=== PATIENT | female | born 1975 | race African-American/Black ===

== ENCOUNTER → 2016-09-07 | Emergency (ER) | payer BC ==
[~2016-09-07] VITALS: Ht 152.4 cm; Wt 85.0 kg
[~2016-09-07] MED LIST: PRENATAL MVI PO
[2016-09-07 12:34] VITALS: BP 146/101; PULSE 82; TEMP 98.2
[2016-09-07 13:47] LABS: BASO % 0.3 % (0.0-2.0); EOS # 0.1 (0.0-0.7); EOS % 1.1 % (0-4.0); GRAN # 3.5 (1.4-6.5); GRAN % 56.3 % (42.2-75.2); HEMOGLOBIN 12.1 g/dl (12.5-16.0); LYMPH % 31.9 % (20.0-51.0); MEAN CELL VOLUME 72 fl (80.0-100.0); MEAN CORPUSCULAR HEMOGLOBIN 22 pg (27.0-31.0); MEAN CORPUSCULAR HGB CONC 31 g/dl (33.0-37.0); MEAN PLATELET VOLUME 9.9 fl (7.4-10.4); MONO # 0.6 (0.1-0.6); MONO % 10.1 % (1.7-9.3); PLATELET COUNT 214 K/mm3 (130-400); RED BLOOD COUNT 5.39 M/mm3 (4.10-5.30); REDCELL DISTRIBUTION WIDTH-CV 18.6 % (11.5-14.5); WHITE BLOOD COUNT 6.2 K/mm3 (4.8-10.8)
[2016-09-07 14:07] LABS: PH 5 (5-8); SQUAMOUS EPITHELIAL 0-2 /hpf; URINE APPEARANCE Clear; URINE BACTERIA Rare /hpf; URINE BILIRUBIN Negative (NEGATIVE); URINE BLOOD 3+ (NEGATIVE); URINE COLOR Yellow; URINE GLUCOSE Negative (NEGATIVE); URINE KETONE Negative (NEGATIVE); URINE RBC >50 /hpf; URINE UROBILINOGEN Negative (NEGATIVE); URINE WBC 0-2 /hpf
== END | disposition home or self-care (01) ==
LOC: COL.ER 12:22
PROVIDERS: Emergency Medicine
DX: O20.9 Hemorrhage in early pregnancy, unspecified (principal); Z3A.01 Less than 8 weeks gestation of pregnancy; O09.521 Supervision of elderly multigravida, first trimester

== ENCOUNTER 2018-01-25 21:20 | Emergency (ER) | payer BC ==
[2018-01-25 21:22] VITALS: TEMP 98.6
[2018-01-25] MEDS ORDERED: ZANTAC 7575 MG PO (21:38)
[2018-01-25] MEDS ORDERED: ZYRTEC5 MG PO (21:38)
[2018-01-25] MEDS ORDERED: NORVASC 5MG5 MG/TAB PO (21:38)
[2018-01-25 22:05] LABS: COLLECTION METHOD CLEAN CATCH
[2018-01-25 22:07] LABS: BASO % 0.3 % (0.0-2.0); EOS # 0.1 (0.0-0.7); GRAN # 6.3 (1.4-6.5); GRAN % 73.5 % (42.2-75.2); HEMOGLOBIN 11.5 g/dl (12.5-16.0); LYMPH # 1.4 (1.2-3.4); LYMPH % 16.4 % (20.0-51.0); MEAN CELL VOLUME 73 fl (80.0-100.0); MEAN CORPUSCULAR HEMOGLOBIN 24 pg (27.0-31.0); MEAN CORPUSCULAR HGB CONC 32 g/dl (33.0-37.0); MEAN PLATELET VOLUME 9.5 fl (7.4-10.4); MONO # 0.7 (0.1-0.6); MONO % 8.1 % (1.7-9.3); PLATELET COUNT 203 K/mm3 (130-400); REDCELL DISTRIBUTION WIDTH-CV 16.1 % (11.5-14.5)
[2018-01-25 22:08] LABS: HEMATOCRIT 35.8 % (37.0-47.0)
[2018-01-25 22:10] LABS: MUCOUS Present /lpf; PH 6 (5-8); SQUAMOUS EPITHELIAL 0-2 /hpf; URINE APPEARANCE Clear; URINE BACTERIA None Seen /hpf; URINE BILIRUBIN Negative (NEGATIVE); URINE BLOOD Negative (NEGATIVE); URINE COLOR Yellow; URINE GLUCOSE Negative (NEGATIVE); URINE KETONE 1+ (NEGATIVE); URINE LEUKOCYTE ESTERASE Negative (NEGATIVE); URINE NITRATE Negative (NEGATIVE); URINE PROTEIN(semi-quant) Negative (NEGATIVE); URINE RBC 0-2 /hpf; URINE UROBILINOGEN Negative (NEGATIVE)
[2018-01-25 22:20] LABS: ALANINE AMINOTRANSFERASE 39 U/L (9-52); ALBUMIN 3.5 gm/dL (3.5-5.0); ALKALINE PHOSPHATASE 67 U/L (50-136); ANION GAP 9 mmol/L (7-16); AST,SGOT 21 U/L (15-37); BILIRUBIN,TOTAL < 0.1 mg/dL (0.0-1.0); BLOOD UREA NITROGEN 8 mg/dL (7-17); CALCIUM 9.1 mg/dL (8.4-10.2); CARBON DIOXIDE 23 mmol/L (22-30); CHLORIDE 102 mmol/L (98-107); CREATININE, serum 0.59 mg/dL (0.52-1.25); GLUCOSE 84 mg/dL (74-106); POTASSIUM 3.8 mmol/L (3.4-5.0); SODIUM 134 mmol/L (137-145)
[2018-01-25 23:00] VITALS: BP 124/87; PULSE 86
== END 2018-01-25 23:00 | disposition home or self-care (01) ==
LOC: COL.ER 21:20
PROVIDERS: Emergency Medicine
DX: O99.612 Diseases of the digestive system complicating pregnancy, second trimester (principal); O16.2 Unspecified maternal hypertension, second trimester; O99.89 Other specified diseases and conditions complicating pregnancy, childbirth and the puerperium; R10.2 Pelvic and perineal pain; K21.9 Gastro-esophageal reflux disease without esophagitis; Z3A.18 18 weeks gestation of pregnancy

== ENCOUNTER 2018-05-28 12:31 | Inpatient (IN) | payer BC ==
[~2018-05-28] VITALS: Ht 152.4 cm; Wt 90.0 kg
[~2018-05-28 12:31] MED LIST changes: +NORVASC 5MG5 MG/TAB PO; +ZANTAC 7575 MG PO; +ZYRTEC5 MG PO
[2018-06-19] VITALS (19 sets, daily range): BP systolic 105–151; BP diastolic 58–93; PULSE 50–90; TEMP 98–98.4
[2018-06-19 10:48] LABS: BASO % 0.3 % (0.0-2.0); EOS % 0.3 % (0-4.0); GRAN # 4.5 (1.4-6.5); GRAN % 67.7 % (42.2-75.2); HEMATOCRIT 38.2 % (37.0-47.0); HEMOGLOBIN 11.9 g/dl (12.5-16.0); LYMPH # 1.4 (1.2-3.4); LYMPH % 21.5 % (20.0-51.0); MEAN CELL VOLUME 76 fl (80.0-100.0); MEAN CORPUSCULAR HEMOGLOBIN 24 pg (27.0-31.0); MEAN CORPUSCULAR HGB CONC 31 g/dl (33.0-37.0); MEAN PLATELET VOLUME 11.7 fl (7.4-10.4); MONO # 0.6 (0.1-0.6); MONO % 9.3 % (1.7-9.3); PLATELET COUNT 171 K/mm3 (130-400); RED BLOOD COUNT 5.03 M/mm3 (4.10-5.30); REDCELL DISTRIBUTION WIDTH-CV 16.7 % (11.5-14.5)
[2018-06-19] MEDS ORDERED: CALCIUM CARBON650 M2 (10:52)
[2018-06-19] MEDS ORDERED: VTAMINC250TA (10:52)
[2018-06-19] MEDS ORDERED: PROFERRIN ES12 MG (10:52)
[2018-06-20 06:38] LABS: HEMOGLOBIN 11.4 g/dl (12.5-16.0)
[2018-06-20 06:39] LABS: HEMATOCRIT 36.1 % (37.0-47.0)
[2018-06-20 06:50] VITALS: BP 141/85; PULSE 62; TEMP 98
[2018-06-20 16:11] VITALS: BP 142/85; PULSE 85; TEMP 97.6
[2018-06-20 19:00] VITALS: BP 137/75; PULSE 80; TEMP 97.9
[2018-06-21 08:00] VITALS: BP 138/78; PULSE 70; TEMP 98.1
[2018-06-21] MEDS ORDERED: PERCOCET 325 MG1 TA2 PO (13:49)
[2018-06-21] MEDS ORDERED: IBU600 MG PO (13:49)
== END 2018-06-21 16:40 | disposition home or self-care (01) | DRG 787 ==
LOC: EDSTATUS 06-19 06:29 → OB 06-19 06:32 → LDRO 06-19 12:29 → OB 06-20 19:02
PROVIDERS: Obstetrics & Gynecology
PROC: 10D00Z1 Extraction of Products of Conception, Low, Open Approach (ICD-10-PCS; principal; 2018-06-19)
DX: O34.211 Maternal care for low transverse scar from previous cesarean delivery (principal); O10.92 Unspecified pre-existing hypertension complicating childbirth; Z3A.39 39 weeks gestation of pregnancy; Z37.0 Single live birth; O99.214 Obesity complicating childbirth; O99.02 Anemia complicating childbirth
CPT/HCPCS: J0690; J1885; J2370; J2405; J2590; J7120

== ENCOUNTER → 2018-06-25 | Outpatient (CLI) | payer BC ==
[~2018-06-25] MED LIST changes: +CALCIUM CARBON650 M2; +IBU600 MG PO; +PERCOCET 325 MG1 TA2 PO; +PROFERRIN ES12 MG; +VTAMINC250TA
== END ==
LOC: OLC 13:35
DX: Z01.89 Encounter for other specified special examinations (principal)

== ENCOUNTER → 2019-06-19 | Outpatient (CLI) | payer BC ==
[2019-06-19 10:26] LABS: ALBUMIN 4.4 gm/dL (3.5-5.0); BILIRUBIN,TOTAL 0.2 mg/dL (0.0-1.0); CALCIUM 9.5 mg/dL (8.4-10.2); CHOLESTEROL RISK RATIO 3.9; CREATININE, serum 0.78 (0.52-1.25); POTASSIUM 4.4 mmol/L (3.4-5.0); TOTAL PROTEIN 8.4 gm/dL (6.4-8.2)
== END ==
LOC: COL.LAB 08:54
PROVIDERS: Family Medicine
DX: Z13.820 Encounter for screening for osteoporosis (principal); E65 Localized adiposity; I10 Essential (primary) hypertension